=== PATIENT | female | born 1975 | race Caucasian/White ===

== ENCOUNTER → 2018-10-30 15:25 | Outpatient (CLI) | payer BC, SELFPAY ==
--- NOTE | 2018-10-30 15:32 | XR_ITS ---
XR knee RT 3V HISTORY: ITS.REASON: PATELLOFERMORAL SYNDROME ORDERING PHYSICIAN: Alban Lopez MD PATIENT AGE: 42 years COMPARISON: None FINDINGS: No fracture or dislocation. No lytic or blastic change. Normal mineralization. There are mild osteoarthritic changes of the medial compartment. No obvious patellar subluxation. IMPRESSION: Mild osteoarthritis of the medial compartment
== END ==
PROVIDERS: PCP Family Medicine; Visit Provider Family Medicine
DX: M22.2X1 Patellofemoral disorders, right knee (principal)
CPT/HCPCS: 73562

== ENCOUNTER 2020-03-15 13:09 | Emergency (ER) | payer BC, SELFPAY ==
[2020-03-15 13:34] VITALS: BP 141/92; PULSE 85; RESP 19; TEMP 37.1; O2SAT 98; BMI 27.8
--- NOTE | 2020-03-15 13:39 | HMH.EDUTC ---
[facility] [place] Disposition Clinical Impression: Encounter for laboratory testing for COVID-19 virus Allergic rhinitis Qualifiers: Allergic rhinitis trigger: unspecified Allergic rhinitis seasonality: unspecified Qualified Code(s): J30.9 - Allergic rhinitis, unspecified Disposition: Home, Self-Care Condition on Discharge: Good Instructions: DI for Allergic Rhinitis, Allergic Rhinitis, Preventing the Spread of Coronavirus Discharge Instructions Additional Instructions: *Monitor Temp, Over the counter Motrin or Tylenol as directed/as needed Tylenol every 4 hours and Motrin every 6 hours (as long as your family doctor has told you that you can take it) for fever or pain. and straight to ER if unable to lower temp less than 101.0 after medication given *Warm salt water gargles may help to soothe the throat *Throat Lozenges *Warm fluids like tea with honey may help to soothe the throat *Sleep elevated *Humidifier/Vaporizer *Nasonex 2 sprays in each nostril daily but be aware that it may take 2-3 days before you notice improvement *Bromfed may cause drowsiness. Know how it effects you (your child) before driving, caring for small child, or sending your child to school. Not other antihistamines/allergy medications while taking bromfed Your throat swab was sent for culture. Those results are typically sent to your primary care. Be sure to follow up in 2-3 days with your family doctor/primary care physician if no improvement so they can review those result and treat if necessary. If you don?t have a primary care doctor, I recommend you get one but in the mean time, you will have to return to a walk in clinic Follow up IMMEDIATELY for new or worsening symptoms or no Noticeable improvement over the next 48-72 hours. 911 for difficulty breathing or swallowing *Discharge Instructions for COVID-19 (Suspected or Confirmed) Rest as needed. Healthy habits may help you feel better. Steps include: ? Choose healthy foods including fruits and vegetables. Drink water throughout the day. ? Get plenty of sleep each night. ? If you smoke, try to quit. It may ease breathing. ? Avoid alcohol Keep Others Healthy The virus can spread to others. Droplets are released every time you sneeze or cough. The droplets can get into the mouth, nose, or eyes of people near you and lead to infection. To lower the chances of spreading COVID-19 to others ? Avoid public areas, events, or transportation. Do not return to work or school until your doctor has said it is safe to do so. ? Call ahead if you need to go to a medical center. Let them know you may have COVID-19. It will help them guide you where to go. They may also ask you to wear a facemask when you come to the office. If you call for emergency medical services, let them know you may have COVID-19 as well. While at home: ? Try to avoid close contact with others. Stay about 6 feet away. If possible, spend most of your time in separate rooms. ? Use a face mask if you will be in close contact with others such as sharing a room or vehicle. ? Have someone wipe down common surfaces in the home. Use household managed services sales consultant every day on areas like doorknobs, counters, or sinks. ? Cough or sneeze into a tissue. Throw the tissue away right after use. If a tissue is not available, cough or sneeze into your elbow. Go home and self quarantine No work until negative test results Call back to the [facility] on Tuesday to see if your test results are back and what the result is, follow instructions on handout you was given Prescriptions: Mometasone Furoate [Nasonex] 2 sprays NS DAILY #1 spray.pump Transmission Status: Pending to [facility] #[id number] Referrals: Alban Lopez MD [Primary Care Provider] - As needed Forms: Work/School Release Time of Disposition: 13:50 Medical Decision Making - Murali Inquiry Pt receiving controlled substance: No Murali was queried for this patient: No Vital Signs: 03/15/20 13:34 Temper
[2020-03-15 13:45] VITALS: BP 141/92; PULSE 85; RESP 19; TEMP 37.1; O2SAT 98
[2020-03-15 19:01] LABS: UTC Strep Screen (Rapid) Negative (Negative)
[2020-04-07 11:18] LABS: Covid-19 Nasal PCR Sendout UK DETECTED
== END 2020-03-15 13:47 | disposition home or self-care (01) ==
PROVIDERS: Emergency Provider Nurse Practitioner; PCP Family Medicine
DX: Z20.828 Contact with and (suspected) exposure to other viral communicable diseases (principal); J30.9 Allergic rhinitis, unspecified
CPT/HCPCS: 87880; 99202; U0003

== ENCOUNTER → 2020-03-27 13:12 | Outpatient (CLI) | payer BC, SELFPAY ==
[2020-03-28 13:43] LABS: Covid-19 Nasal PCR Sendout Lex POSITIVE
== END ==
PROVIDERS: PCP Family Medicine; Visit Provider Physician Assistant
DX: Z11.59 Encounter for screening for other viral diseases (principal); U07.1 COVID-19
CPT/HCPCS: U0004

== ENCOUNTER → 2020-04-09 10:58 | Outpatient (CLI) | payer BC, SELFPAY ==
[2020-04-10 06:47] LABS: Covid-19 Nasal PCR Sendout Lex POSITIVE
== END ==
PROVIDERS: PCP Family Medicine; Visit Provider Family Medicine
DX: Z03.818 Encounter for observation for suspected exposure to other biological agents ruled out (principal); Z11.59 Encounter for screening for other viral diseases
CPT/HCPCS: U0004

== ENCOUNTER → 2020-04-10 12:32 | Outpatient (CLI) | payer BC, SELFPAY ==
[2020-04-10 15:08] LABS: Coronavirus 19 IgM Antibody Negative (Negative)
[2020-04-10 15:20] LABS: Coronavirus 19 IgG Antibody Positive (Negative)
== END ==
PROVIDERS: PCP Family Medicine; Visit Provider Physician Assistant
DX: Z03.818 Encounter for observation for suspected exposure to other biological agents ruled out (principal); Z11.59 Encounter for screening for other viral diseases
CPT/HCPCS: 36415; 86328

== ENCOUNTER → 2020-04-16 12:09 | Outpatient (CLI) | payer BC, SELFPAY ==
[2020-04-17 13:26] LABS: Covid-19 Nasal PCR Sendout Lex NOT DETECTED
== END ==
PROVIDERS: PCP Family Medicine; Visit Provider Family Medicine
DX: Z01.818 Encounter for other preprocedural examination (principal)
CPT/HCPCS: 36415; U0004

== ENCOUNTER → 2020-04-18 12:29 | Outpatient (CLI) | payer BC, SELFPAY ==
[2020-04-19 09:20] LABS: Covid-19 Nasal PCR Sendout Lex POSITIVE
== END ==
PROVIDERS: PCP Family Medicine; Referring Provider Family Medicine; Visit Provider Family Medicine
DX: U07.1 COVID-19 (principal)
CPT/HCPCS: U0004

== ENCOUNTER → 2020-04-21 10:29 | Outpatient (CLI) | payer BC, SELFPAY ==
[2020-04-22 14:06] LABS: Covid-19 Nasal PCR Sendout Lex Positive
== END ==
PROVIDERS: PCP Family Medicine; Visit Provider Family Medicine
DX: U07.1 COVID-19 (principal)
CPT/HCPCS: U0004

== ENCOUNTER → 2020-04-28 11:29 | Outpatient (CLI) | payer BC, SELFPAY | PROVIDERS: PCP Family Medicine; Visit Provider Family Medicine | DX: Z20.828 Contact with and (suspected) exposure to other viral communicable diseases (principal); U07.1 COVID-19 | CPT/HCPCS: U0003 ==

== ENCOUNTER → 2020-05-06 10:16 | Outpatient (CLI) | payer BC, SELFPAY | PROVIDERS: PCP Family Medicine; Visit Provider Physician Assistant | DX: U07.1 COVID-19 (principal) | CPT/HCPCS: U0003 ==

== ENCOUNTER → 2022-11-30 16:18 | Outpatient (CLI) | payer BC, SELFPAY ==
--- NOTE | 2022-11-30 16:18 | MM_ITS ---
PROCEDURE INFORMATION: Exam: MG Bilateral Screening 3D Mammography Exam date and time: 11/30/2022 4:10 PM Age: 47 years old Clinical indication: Screening examination TECHNIQUE: Imaging protocol: Bilateral Screening tomosynthesis and 2D mammography including computer-aided detection (CAD) when performed. COMPARISON: No relevant prior studies available. FINDINGS: MAMMOGRAPHY: Breast composition: The breasts are heterogeneously dense, which may obscure small masses. Mass: None. Architectural distortion: None. Calcifications: No suspicious calcifications. Asymmetric density: None. Skin thickening: None. Axillary adenopathy: None. IMPRESSION: No mammographic evidence of malignancy. Annual screening is recommended unless otherwise clinically indicated. ASSESSMENT: BI-RADS Category 1: Negative
== END ==
PROVIDERS: PCP Family Medicine; Visit Provider Obstetrics & Gynecology
DX: Z12.31 Encounter for screening mammogram for malignant neoplasm of breast (principal)
CPT/HCPCS: 77063; 77067

== ENCOUNTER 2024-08-10 15:50 | Outpatient (CLI) | payer BC, SELFPAY ==
--- NOTE | 2024-08-10 15:52 | US_ITS ---
PROCEDURE: US TRANSVAGINAL CLINICAL INDICATION: LLQ and IUD placement COMPARISON: No exams were available for comparison FINDINGS: Transvaginal sonographic images of the pelvis were obtained. UTERUS: 8.1cm x 5.8 cmx 4.7 cm retroflexed and axial with a combined endometrial thickness of 4.9mm. There is an IUD within the uterine cavity with appears to be in the correct position. LEFT OVARY: 3.2cmx3.9 cmx3.0cm with a volume of 19.5ml. There is a follicle in the left ovary measuring 2.9 cm x 2.8 cm x 3.3 cm RIGHT OVARY: 2.6 cmx 1.6 cmx1.4cm with a volume of 3.1ml. Both ovaries are seen and appear normal. Doppler flow to both ovaries are seen. There is no fluid in the cul-de-sac. IMPRESSION: 1. Retroflexed, axial uterus normal in shape and size. The endometrium is thin measuring 4.9 mm. 2. Within the uterine cavity is an IUD that appears to be in the correct position. Somewhat difficult scan due to the axial position of the uterus. 3. Both ovaries are seen and appear normal. There is a 3.3 cm follicle in the left ovary. 4. No fluid in the cul-de-sac. Dictated by: Tahir Adhikari MD 08/11/2024 08:50 Tahir Adhikari MD in [place] 08/11/2024 08:50
== END 2024-08-10 23:59 | disposition home or self-care (01) ==
LOC: RAD 15:52
PROVIDERS: PCP Family Medicine; Visit Provider Obstetrics & Gynecology
DX: R10.32 Left lower quadrant pain (principal); Z97.5 Presence of (intrauterine) contraceptive device
CPT/HCPCS: 76830

== ENCOUNTER 2024-10-11 15:27 | Outpatient (CLI) | payer BC, SELFPAY ==
--- NOTE | 2024-10-11 15:31 | US_ITS ---
PROCEDURE: US TRANSVAGINAL CLINICAL INDICATION: left ovarian cyst COMPARISON: US US TRANSVAGINAL from 08/10/2024 FINDINGS: Transvaginal sonographic images of the pelvis were obtained. UTERUS: 7.2cm x 6cmx 5.0cm retrovert with a combined endometrial thickness of 2.8mm. An IUD is present within the urine cavity in the correct position. LEFT OVARY: 6xah0yto2.8cm with a volume of 6.5ml. There is a follicle in the left ovary measuring 2.1 cm x 1.5 cm x 1.1 cm. This is smaller than her previous exam in July. RIGHT OVARY: 5cmx 4myd0xh with a volume of 50.3ml. There is a follicle in the right ovary measuring 4.8 cm x 2.8 cm 2.8 cm Both ovaries are seen and appear normal. Doppler flow to both ovaries are seen. There is no fluid in the cul-de-sac. IMPRESSION: 1. Retroflexed uterus normal in shape and size. 2. Within the uterine cavity is an IUD in the correct position. 3. Left ovary is seen and the previously described follicle has now diminished in size. It measures 2.1 cm. 4. Within the right ovary is a cyst measuring 4.8 cm. Suggest follow-up in 3-6 months. 5. No fluid in the cul-de-sac. Dictated by: Tahir Adhikari MD 10/12/2024 10:40 Tahir Adhikari MD in [place] 10/12/2024 10:40
== END 2024-10-11 23:59 | disposition home or self-care (01) ==
LOC: RAD 15:28
PROVIDERS: PCP Family Medicine; Visit Provider Obstetrics & Gynecology
DX: R10.32 Left lower quadrant pain (principal)
CPT/HCPCS: 76830

== ENCOUNTER 2025-01-30 06:33 | Day surgery (SDC) | payer BC, SELFPAY ==
[2025-01-28 17:07] VITALS: BMI 27.1
[2025-01-30 07:26] VITALS: BP 123/72; PULSE 82; RESP 16; TEMP 36.3; O2SAT 100
[2025-01-30] MEDS: LACTATED RINGERS 1000ML 1,000 ML 50 ML IV (07:33)
[2025-01-30 07:37] LABS: Urine Pregnancy, HCG Qual. Negative (Negative)
--- NOTE | 2025-01-30 08:04 | EXP.HP ---
History of Present Illness *Admission Date: 01/30/25 *Reason for visit:: Screening for colon cancer *History of present illness: Mrs. Josue is a 49-year-old female who is here for initial screening colonoscopy. The examination is deemed medically necessary for screening colonoscopy. The patient has been seen, interviewed and examined prior to the procedure by both myself and the anesthesia provider. [facility] Disclaimer: The information contained in this section may have been updated after the patient was seen, as this information can be updated by other users. Medical History (Updated 01/30/25 @ 08:07 by Osman Urbina II, MD) Ovarian cyst LLQ abdominal pain Encounter for removal and reinsertion of IUD No significant past medical history Surgical History No history of previous surgery Family History Other No significant family history Social History Smoking Status: Never smoker alcohol intake: never current occupational status: employed and other Travel in the last 8 weeks?: None Have you lived/traveled outside [place] in past 30 days?: No Contact w/someone who lives/traveled outside US past 30 days?: No Exposure to someone with infectious disease in past 14 days?: No Do you have a fever (greater than 100.4 F or 38 C)?: No Have you tested positive for COVID-19?: No Exposed to someone with COVID-19 in past 14 days?: No Do you have a sore throat?: No Do you have a cough?: No Do you have any weakness?: No Do you have any diarrhea?: No Are you experiencing any unusual bleeding?: No Do you have any muscle aches/pain?: No Do you have any abdominal pain?: No Are you experiencing loss of taste or smell?: No Review of Systems Review of Systems Review of systems (narrative): Negative *Cardiovascular Comments: Negative *Gastrointestinal Comments: Negative *Genitourinary Comments: Negative *Musculoskeletal Comments: Negative *Neurologic Comments: Negative Meds Home Medications and Allergies Home Medications ?Medication ?Instructions ?Recorded ?Confirmed ?Type levonorgestrel (Mirena) 1 device intrauterine ONCE 08/07/24 01/30/25 History phentermine 37.5 mg capsule 37.5 mg PO DAILY 01/14/25 01/30/25 History New Prescriptions to Start Prescriptions: Allergies Allergy/AdvReac Type Severity Reaction Status Date / Time No Known Allergies Allergy Verified 01/30/25 07:21 Exam Data for Last 24 hours Vital signs and Labs for Last 24 Hours: Temp Pulse Resp BP Pulse Ox O2 Del Method 97.4 F L 82 16 123/72 100 Room Air 01/30/25 07:26 01/30/25 07:26 01/30/25 07:26 01/30/25 07:26 01/30/25 07:26 01/30/25 07:26 Laboratory Results - last 24 hr 01/30/25 07:24: Urine HCG, Qual Negative I & O for Last 24 hours: Intake & Output 01/27/25 01/28/25 01/29/25 01/30/25 23:59 23:59 23:59 23:59 Weight 195 lb *Routine HEENT Exam Head: Present normocephalic Eye: Present EOMI and PERRL ENT: Present mucous membranes moist *Routine Neck Exam Neck: Present supple *Routine Respiratory Exam Respiratory: Present CTA bilaterally *Routine Cardiovascular Exam Cardiovascular: Present RRR *Routine Abdominal Exam Abdominal: Present soft and normoactive bowel sounds; Absent tenderness *Routine Rectal Exam Rectal:: deferred *Routine Genitalia Exam Genitalia:: deferred *Routine Extremities Exam Extremities: Absent cyanosis, clubbing or edema *Routine Skin Exam Skin: Present warm; Absent rash *Routine Neurological Exam Neurological: Present alert and oriented X3 Assessment and Plan *Assessment and plan (1) Screening for colon cancer: Status: Acute Category: Medical Code(s): Z12.11 - Encounter for screening for malignant neoplasm of colon Plan A/P: 1. Screening for colon cancer is the preprocedural diagnosis. The patient will be anesthetized/sedated using MAC sedation. The patient has been seen and examined. Cardiac and lung assessment prior to the examination is stable. Proceed with planned screening colonoscopy.
--- NOTE | 2025-01-30 08:08 | HMH.PROCNOTE ---
[facility] Procedure Note Date: 01/30/25 Time: 08:20 Procedure Note:: Colonoscopy Procedure Report: Colonoscopy with cold snare polypectomy Endoscopist: Osman Urbina II, MD Referring physician: Ean Lopez MD Date of Procedure: January 30, 2025 Equipment: Olympus 190 variable stiffness pediatric colonoscope Sedation: MAC sedation Indication: Mrs. Josue is a 49-year-old female who is here for initial screening colonoscopy. She reports no abdominal pain, weight loss, change in her bowel habits or rectal bleeding. She reports no family history of colon cancer. Procedure: Prior to the procedure, a history and physical exam was performed, and patient's medications and allergies were reviewed. The risks, benefits and alternatives of the sedation and procedure were discussed with the patient. All questions were answered and informed consent was obtained. The patient was brought to the procedure room. Patient identification and proposed procedure were verified by the physician and the nurse. The patient was placed in a left lateral decubitus position and the scope was passed under direct vision. Throughout the procedure, the patient's blood pressure, pulse, and oxygen saturations were monitored continuously. The colonoscopy was accomplished without difficulty. The patient tolerated the procedure well. Findings: On digital rectal examination there was normal rectal tone. There were no external hemorrhoids. The colonoscope was introduced through the anal canal to the rectum and advanced to the cecum. The ileocecal valve and appendiceal orifice were identified. The scope was advanced a short distance into the ileum which appeared grossly normal. The scope was then withdrawn into the colon. There is a single 4 mm sigmoid colon polyp that was removed via cold snare polypectomy. The remaining cecum, ascending, transverse, descending, sigmoid and rectum were grossly normal. There were no other mucosal abnormalities identified. Upon retroflexion within the rectum there were grade 1 internal hemorrhoids. The preparation was excellent throughout with [place] Preparation Score of 9. The cecal time was 12 minutes. Impression: 1. Diminutive 4 mm sigmoid colon polyp Plan: I will follow-up the polyp histology and recommend repeat surveillance colonoscopy again in 7 years if the polyp is adenomatous.
[2025-01-30 08:09] VITALS: O2SAT 100
[2025-01-30 08:25] VITALS: BP 91/59; PULSE 79; RESP 16; TEMP 36.1; O2SAT 99
[2025-01-30 08:35] VITALS: BP 113/73; PULSE 71; RESP 16; O2SAT 100
[2025-01-30 08:45] VITALS: BP 108/72; PULSE 75; RESP 16; O2SAT 100
[2025-01-30 08:55] VITALS: BP 123/71; PULSE 81; RESP 16; O2SAT 100
--- NOTE | 2025-01-30 09:33 | P.PNANES_ITS ---
[facility] Disclaimer: The information contained in this section may have been updated after the patient was seen, as this information can be updated by other users. Medical History (Updated 01/30/25 @ 08:07 by Osman Urbina II, MD) Ovarian cyst LLQ abdominal pain Encounter for removal and reinsertion of IUD No significant past medical history Surgical History No history of previous surgery Family History Other No significant family history Social History Smoking Status: Never smoker alcohol intake: never substance use type: denies use current occupational status: employed and other Travel in the last 8 weeks?: None [facility] Anesthesia Checklist Patient Identification Patient Identification: Verbal (Name & ) Structural Data Admitted From: Home Planned Operative Procedure/s: colonoscopy Consent for Planned Operative Procedure(s) Verified: Yes Airway Assessment Mallampati Score:: Class II C-Spine Mobility Assessed: Yes TMJ Mobility Assessed: Yes Dentition: Good Dentition Neurological Assessment Level of Consciousness: Awake, Alert and Appropriate Anesthesia Plan Anesthesia Risk discussed: Yes Anesthesia Plan: Verified ASA Class: II Anesthesia Type: MAC
== END 2025-01-30 08:55 | disposition home or self-care (01) ==
PROVIDERS: PCP Family Medicine; Visit Provider Internal Medicine Gastroenterology
PROC: 0DJD8ZZ Inspection of Lower Intestinal Tract, Via Natural or Artificial Opening Endoscopic (ICD-10-PCS; CPT 45378; principal; 2025-01-30 08:00)
DX: Z12.11 Encounter for screening for malignant neoplasm of colon (principal); D12.5 Benign neoplasm of sigmoid colon; K64.0 First degree hemorrhoids
CPT/HCPCS: 45385; 81025; J7120

== ENCOUNTER 2025-03-29 15:15 | Outpatient (CLI) | payer BC, SELFPAY ==
--- NOTE | 2025-03-29 15:17 | MM_ITS ---
PROCEDURE INFORMATION: Exam: MG Bilateral Screening 3D Mammography Exam date and time: 03/29/2025 3:18 PM Age: 49 years old Clinical indication: Screening mammogram TECHNIQUE: Imaging protocol: Bilateral Screening tomosynthesis and 2D mammography including computer-aided detection (CAD) when performed. COMPARISON: MG MM DIG SCREENING MAMM BI W/CAD 11/30/2022 4:10 PM FINDINGS: MAMMOGRAPHY: Breast composition: The breast is heterogeneously dense, which may obscure small masses. Mass: None. Architectural distortion: No new or suspicious architectural distortion. Calcifications: No new or suspicious calcifications are present Asymmetric density: No new or suspicious asymmetric density is present Skin thickening: None. Axillary adenopathy: None. IMPRESSION: No mammographic evidence of malignancy. Recommend annual screening mammography unless otherwise clinically indicated. ASSESSMENT: BI-RADS category 1: Negative.
== END 2025-03-29 23:59 | disposition home or self-care (01) ==
LOC: RAD 15:16
PROVIDERS: PCP Family Medicine; Visit Provider Family Medicine
DX: Z12.31 Encounter for screening mammogram for malignant neoplasm of breast (principal); R92.333 Mammographic heterogeneous density, bilateral breasts
CPT/HCPCS: 77063; 77067